=== PATIENT | female | born 1975 | race Asian ===

== ENCOUNTER → 2018-10-03 | Outpatient (CLI) | payer BC ==
[~2018-10-03] MED LIST: CEPHALEXIN500 M1 PO; NO HOME MEDICATIONS
== END ==
LOC: COL.RAD 13:34
DX: M53.3 Sacrococcygeal disorders, not elsewhere classified (principal)
CPT/HCPCS: G0260; J3301

== ENCOUNTER 2018-11-05 09:45 | Outpatient (RCR) | payer BC | END 2019-01-14 13:15 | disposition home or self-care (01) | LOC: WSC 09:45 | DX: M54.31 Sciatica, right side (principal) ==

== ENCOUNTER → 2018-12-12 | Outpatient (CLI) | payer BC | LOC: COL.RAD 14:15 | DX: M51.27 Other intervertebral disc displacement, lumbosacral region (principal); N83.8 Other noninflammatory disorders of ovary, fallopian tube and broad ligament ==

== ENCOUNTER → 2019-01-01 | Outpatient (CLI) | payer BC | LOC: COL.RAD 09:39 | DX: N83.9 Noninflammatory disorder of ovary, fallopian tube and broad ligament, unspecified (principal) | CPT/HCPCS: A9585 ==

== ENCOUNTER → 2019-06-08 | Outpatient (CLI) | payer BC | LOC: MHCPAIN 12:15 | DX: G89.29 Other chronic pain (principal); M47.817 Spondylosis without myelopathy or radiculopathy, lumbosacral region; M53.3 Sacrococcygeal disorders, not elsewhere classified | CPT/HCPCS: G0463 ==